=== PATIENT | female | born 1995 | race American Indian/Alaskan Native ===

== ENCOUNTER 2016-07-21 10:47 | Emergency (ER) | payer MEDICAID, OTHER ==
[2016-07-21 11:03] VITALS: BMI 26.2
[2016-07-21 11:04] VITALS: BP 115/76; RESP 18; TEMP 98.3
--- NOTE | 2016-07-21 12:01 | RAD ---
PROCEDURE: Third finger left hand 07/21/2016 PA view of the left hand and 2 cone-down views of the left 3rd finger performed. HISTORY: r/o fx COMPARISON: No prior study available for comparison FINDINGS: BONES: The current study reveals no evidence of acute displaced fracture nor dislocation. The osseous structures appear intact. There appears be mild soft tissue swelling extending from the just above the level of the PIP joint distally. JOINTS: Normal. No osteoarthritic changes. SOFT TISSUES: As above. No radiopaque foreign bodies OTHER FINDINGS: None. IMPRESSION: No acute fracture seen. Soft tissue swelling distal 1/2 of the 3rd finger.
[2016-07-21 12:30] VITALS: PULSE 75; O2SAT 98
--- NOTE | 2016-07-21 13:01 | C.PDOC ---
History Of Present Illness 20 year old female presents to the ED with complaints of left 3rd finger pain and swelling after accidentally closing a car door on it today. Patient is right handed and has no other complaints at this time. Chief Complaint (Nursing): Finger,Hand,&Wrist History Per: Patient History/Exam Limitations: no limitations Onset/Duration Of Symptoms: Hrs Current Symptoms Are (Timing): Still Present Quality: "Pain" Severity: Mild Past Medical History Reviewed: Historical Data, Nursing Documentation, Vital Signs Vital Signs: Last Vital Signs Temp 98.3 F 07/21/16 11:01 Pulse 75 07/21/16 12:28 Resp 18 07/21/16 12:28 BP 115/76 07/21/16 11:01 Pulse Ox 98 07/21/16 13:05 - Medical History PMH: No Chronic Diseases Family History: States: Unknown Family Hx - Social History Hx Alcohol Use: No Hx Substance Use: No - Immunization History Hx Tetanus Toxoid Vaccination: No Hx Influenza Vaccination: No Hx Pneumococcal Vaccination: No Review Of Systems Except As Marked, All Systems Reviewed And Found Negative. Constitutional: Negative for: Fever, Chills Musculoskeletal: Positive for: Hand Pain (+Left 3rd finger pain and swelling) Neurological: Negative for: Weakness, Numbness Physical Exam - Physical Exam Appears: Non-toxic, No Acute Distress Skin: Normal Color, Warm, Dry Head: Atraumatic, Normacephalic Eye(s): bilateral: Normal Inspection Oral Mucosa: Moist Extremity: No Normal ROM (Decreased ROM to fingers of left hand), Capillary Refill (< 2 seconds), No Deformity, Swelling (+Swelling to the left 3rd finger) , No Other (No abrasions or lacerations) Pulses: Left Radial: Normal, Right Radial: Normal Neurological/Psych: Oriented x3, Normal Speech, Normal Cognition, Normal Sensation ED Course And Treatment O2 Sat by Pulse Oximetry: 98 (Room air) Pulse Ox Interpretation: Normal - Other Rad +Left Hand X-ray X-Ray: Viewed By Me, Read By Radiologist Interpretation: IMPRESSION: No acute fracture seen. Soft tissue swelling distal 1/2 of the 3rd finger. Progress Note: Left hand X-ray ordered and reviewed. Splint applied and patient advised outpatient follow up. Disposition - Disposition Referrals: [facility], [Non-Staff] - Clinic,Med Surg [Primary Care Provider] - Disposition: HOME/ ROUTINE Disposition Time: 12:00 Condition: GOOD Additional Instructions: Thank you for letting us take care of you today. Your provider was Dr. Bah. You were treated for hand contusion. The emergency medical care you received today was directed at your acute symptoms. If you were prescribed any medication, please fill it and take as directed. It may take several days for your symptoms to resolve. Return to the Emergency Department if your symptoms worsen, do not improve, or if you have any other problems. Please contact your doctor or call one of the physicians/clinics you have been referred to that are listed on the Patient Visit Information form that is included in your discharge packet. Bring any paperwork you were given at discharge with you along with any medications you are taking to your follow up visit. Our treatment cannot replace ongoing medical care by a primary care provider (PCP) outside of the emergency department. Thank you for allowing the [facility] team to be part of your care today. Follow up with your doctor of the clinic if symptoms persist after 1 week. Prescriptions: Ibuprofen [Motrin] 600 mg PO Q6 PRN #20 tab PRN Reason: Pain, Moderate (4-7) Instructions: Contusion in Adults (ED) - Clinical Impression Clinical Impression: Contusion of hand - Scribe Statement The provider has reviewed the documentation as recorded by the Scribe Daysi Newton. Provider Attestation: All medical record entries made by the Scribe were at my direction and personally dictated by me. I have reviewed the chart and agree that the record accurately reflects my personal performance of the history, physical exam, medical decision making, and the department course for this patient. I have also personally directed, reviewed, and agree with the discharge instructions and disposition.
== END 2016-07-21 12:29 | disposition home or self-care (01) ==
LOC: SUPCPDRO 10:47 → C.ER 10:47
DX: S60.032A Contusion of left middle finger without damage to nail, initial encounter (principal); W22.8XXA Striking against or struck by other objects, initial encounter